=== PATIENT | female | born 1990 | race Caucasian/White ===

== ENCOUNTER 2023-04-09 10:15 | Outpatient (CLI) | payer MEDICAID, SELFPAY ==
--- NOTE | 2023-04-09 10:45 | CRLHL7_ITS ---
For Patients: As a result of the Cures Act, medical imaging exams and procedure reports are released immediately into your electronic medical record. You may view this report before your referring provider. If you have questions, please contact your health care provider. INDICATION: Follow up viability. TECHNIQUE: Transvaginal obstetrical ultrasound. COMPARISON: March 25, 2023. FINDINGS: There is an intrauterine gestational sac measuring 11 mm, previously 9 mm. There is a yolk sac measuring 3.4 mm. No pole. This likely reflects an anembryonic . The ovaries are not seen. No adnexal mass. No free pelvic fluid. IMPRESSION: Gestational sac with a yolk sac. No pole. No appropriate progression when compared with March 25, 2023. Dictated by Rashel Cohen MD @ 04/10/2023 9:27:19 AM (Electronically Signed)
== END 2023-04-09 10:16 | disposition home or self-care (01) ==
LOC: US 10:24
PROVIDERS: Visit Provider Physician Assistant
DX: O02.1 Missed abortion (principal)
CPT/HCPCS: 76817; T1013

== ENCOUNTER 2023-04-10 09:50 | Outpatient (CLI) | payer MEDICAID, SELFPAY | END 2023-04-10 09:51 | disposition home or self-care (01) | PROVIDERS: Visit Provider Physician Assistant | DX: O35.9XX0 Maternal care for (suspected) fetal abnormality and damage, unspecified, not applicable or unspecified (principal); O02.1 Missed abortion | CPT/HCPCS: 84702; 86850; 86900; 86901 ==

== ENCOUNTER 2023-04-16 17:15 | Outpatient (CLI) | payer MEDICAID, SELFPAY | END 2023-04-16 17:16 | disposition home or self-care (01) | LOC: NFLDREF 04-18 14:11 | PROVIDERS: Visit Provider Physician Assistant | DX: O02.1 Missed abortion (principal) | CPT/HCPCS: 84702 ==

== ENCOUNTER 2023-04-23 18:10 | Outpatient (CLI) | payer MEDICAID, SELFPAY | END 2023-04-23 18:11 | disposition home or self-care (01) | LOC: NFLDREF 04-24 09:03 | PROVIDERS: Visit Provider Physician Assistant | DX: O02.1 Missed abortion (principal) | CPT/HCPCS: 84702 ==

== ENCOUNTER 2023-04-30 17:15 | Outpatient (CLI) | payer MEDICAID, SELFPAY | END 2023-04-30 17:16 | disposition home or self-care (01) | PROVIDERS: Visit Provider Physician Assistant | DX: O02.1 Missed abortion (principal) | CPT/HCPCS: 84703 ==